=== PATIENT | female | born 1985 | race Caucasian/White ===

== ENCOUNTER 2022-10-01 18:48 | Emergency (ER) | payer BC, MEDICAID ==
[~2022-10-01] VITALS: Ht 165.1 cm; Wt 72.7 kg
[2022-10-01] MEDS ORDERED: HYDROmorphone 2mg tablet PO PRN (20:45)
[2022-10-01] MEDS ORDERED: cephalexin 500mg capsule PO ONE (20:50)
[2022-10-01] MEDS ORDERED: LIDOcaine 4% (40 mg/ml) topical solution 50ml TP ONE (20:50)
[2022-10-01] MEDS ORDERED: TETanus/Pertussis (Acell)/Diphther VAC/PF (Tdap-Adult) 0.5ml syringe IMVAC ONE (20:50)
[2022-10-01] MEDS ORDERED: CefTRIAXone 2gm/D5W 50ml BAG 50 ML IV ONE (22:50)
[2022-10-01] MEDS ORDERED: CEPH250T PO (22:52)
[2022-10-01] MEDS ORDERED: ceFAZolin/D5W- 1GM premix 50 ML IV ONE (23:15)
[2022-10-01] MEDS ORDERED: HYDR-3965 PO (23:18)
[2022-10-01 23:42] VITALS: BP 122/74
== END 2022-10-01 23:43 | disposition home or self-care (01) ==
LOC: ER 18:50
DX: S81.011A Laceration without foreign body, right knee, initial encounter (principal); S41.111A Laceration without foreign body of right upper arm, initial encounter; S30.811A Abrasion of abdominal wall, initial encounter; V87.8XXA Person injured in other specified noncollision transport accidents involving motor vehicle (traffic), initial encounter; Y93.89 Activity, other specified; Y92.89 Other specified places as the place of occurrence of the external cause; Y99.8 Other external cause status
CPT/HCPCS: 12004; 73564; 73700; 90471; 90715; 96365; 99285; J0696; A6258; A6449